=== PATIENT | female | born 1975 | race Hispanic/Latino ===

== ENCOUNTER 2017-11-15 08:06 | Outpatient (CLI) | payer OTHER | END 2017-11-15 08:07 | disposition home or self-care (01) | LOC: BICMAMMO 08:06 | PROVIDERS: ATTEND Advanced Practice Midwife | DX: Z12.31 Encounter for screening mammogram for malignant neoplasm of breast (principal); N64.89 Other specified disorders of breast | CPT/HCPCS: 77063; 77067 ==

== ENCOUNTER 2017-11-25 09:55 | Outpatient (CLI) | payer OTHER | END 2017-11-25 09:56 | disposition home or self-care (01) | LOC: BICMAMMO 09:55 | PROVIDERS: ATTEND Advanced Practice Midwife | DX: N64.89 Other specified disorders of breast (principal) | CPT/HCPCS: G0279 ==

== ENCOUNTER 2018-11-28 09:25 | Outpatient (CLI) | payer OTHER ==
--- NOTE | 2018-11-28 11:58 | MMO ---
Bilateral MAMMO Bilat Screen [facility]. CLINICAL HISTORY: Patient is 43 years old and is seen for screening. The patient has no family history of breast cancer. The patient has no personal history of cancer. VIEWS: The views performed were: bilateral craniocaudal with tomosynthesis and bilateral mediolateral oblique with tomosynthesis. FILMS COMPARED: The present examination has been compared to prior imaging studies performed at and 11/25/2017. MAMMOGRAM FINDINGS: The breasts are heterogeneously dense, which could obscure a lesion on mammography. There are no suspicious masses, suspicious calcifications, or new areas of architectural distortion. IMPRESSION: THERE IS NO MAMMOGRAPHIC EVIDENCE OF MALIGNANCY. A ROUTINE FOLLOW-UP MAMMOGRAM IN 1 YEAR IS RECOMMENDED. THE RESULTS OF THIS EXAM WERE SENT TO THE PATIENT. ACR BI-RADS Category 1 - Negative MAMMOGRAPHY NOTE: 1. A negative mammogram report should not delay a biopsy if a dominant of clinically suspicious mass is present. 2. Approximately 10% to 15% of breast cancers are not detected by mammography. 3. Adenosis and dense breasts may obscure an underlying neoplasm.
== END 2018-11-28 09:26 | disposition home or self-care (01) ==
LOC: BICMAMMO 09:25
PROVIDERS: ATTEND Obstetrics & Gynecology
DX: Z12.31 Encounter for screening mammogram for malignant neoplasm of breast (principal)
CPT/HCPCS: 77063; 77067

== ENCOUNTER 2019-12-28 15:48 | Outpatient (CLI) | payer OTHER ==
--- NOTE | 2019-12-28 16:13 | MMO ---
Bilateral MAMMO Bilat Screen [facility]. CLINICAL HISTORY: Patient is 44 years old and is seen for screening. The patient has no family history of breast cancer. The patient has no personal history of cancer. VIEWS: The views performed were: bilateral craniocaudal with tomosynthesis; bilateral mediolateral oblique with tomosynthesis; and bilateral exaggerated craniocaudal. FILMS COMPARED: The present examination has been compared to prior imaging studies performed at [facility] on 11/15/2017, 11/25/2017 and 11/28/2018. This study has been interpreted with the assistance of computer-aided detection. MAMMOGRAM FINDINGS: The breasts are heterogeneously dense, which could obscure a lesion on mammography. There are no suspicious masses, suspicious calcifications, or new areas of architectural distortion. IMPRESSION: THERE IS NO MAMMOGRAPHIC EVIDENCE OF MALIGNANCY. A ROUTINE FOLLOW-UP MAMMOGRAM IN 1 YEAR IS RECOMMENDED. THE RESULTS OF THIS EXAM WERE SENT TO THE PATIENT. ACR BI-RADS Category 1 - Negative MAMMOGRAPHY NOTE: 1. A negative mammogram report should not delay a biopsy if a dominant of clinically suspicious mass is present. 2. Approximately 10% to 15% of breast cancers are not detected by mammography. 3. Adenosis and dense breasts may obscure an underlying neoplasm. Reported by: VERNELL LEDESMA MD Electonically Signed: [id number]
== END 2019-12-28 15:49 | disposition home or self-care (01) ==
LOC: BICMAMMO 15:48
PROVIDERS: ATTEND Obstetrics & Gynecology
DX: Z12.31 Encounter for screening mammogram for malignant neoplasm of breast (principal)
CPT/HCPCS: 77063; 77067

== ENCOUNTER 2023-11-05 17:40 | Emergency (ER) | payer OTHER ==
[2023-11-05] MEDS ORDERED: Ibuprofen 200 MG TAB ONE (18:21)
[2023-11-05 19:05] LABS: Influenza A by NAA Not Detected (NotDetected); Influenza B by NAA Not Detected (NotDetected); SARS-CoV-2 NAA Rapid Test Not Detected (NotDetected)
== END 2023-11-05 19:25 | disposition home or self-care (01) ==
LOC: ERS 17:40
DX: J06.9 Acute upper respiratory infection, unspecified (principal); R53.81 Other malaise
CPT/HCPCS: 99283

== ENCOUNTER 2025-04-29 13:43 | Outpatient (CLI) | payer OTHER | END 2025-04-29 13:44 | disposition home or self-care (01) | LOC: SCSRAD 13:43 | PROVIDERS: ATTEND Nurse Practitioner Family | DX: R39.9 Unspecified symptoms and signs involving the genitourinary system (principal); R14.0 Abdominal distension (gaseous) | CPT/HCPCS: 74018 ==